=== PATIENT | female | born 1950 | race Two or more races ===

== ENCOUNTER 2021-02-10 13:55 | Outpatient (CLI) | payer OTHER | END 2021-02-10 13:56 | disposition home or self-care (01) | LOC: LAB 13:55 | PROVIDERS: ATTEND Psychiatry & Neurology Psychiatry | DX: K80.80 Other cholelithiasis without obstruction (principal); I44.30 Unspecified atrioventricular block; I45.81 Long QT syndrome; F33.2 Major depressive disorder, recurrent severe without psychotic features; F13.180 Sedative, hypnotic or anxiolytic abuse with sedative, hypnotic or anxiolytic-induced anxiety disorder; F29 Unspecified psychosis not due to a substance or known physiological condition; F43.9 Reaction to severe stress, unspecified; F40.248 Other situational type phobia; G47.59 Other parasomnia; R69 Illness, unspecified; M79.7 Fibromyalgia; C50.011 Malignant neoplasm of nipple and areola, right female breast; Z63.8 Other specified problems related to primary support group ==

== ENCOUNTER 2021-02-16 12:36 | Outpatient (CLI) | payer OTHER | END 2021-02-16 12:40 | disposition home or self-care (01) | LOC: RAD 12:36 | PROVIDERS: ATTEND Family Medicine | DX: K76.0 Fatty (change of) liver, not elsewhere classified (principal); K80.80 Other cholelithiasis without obstruction; R10.11 Right upper quadrant pain ==

== ENCOUNTER 2021-06-25 13:30 | Outpatient (CLI) | payer OTHER | END 2021-06-25 13:51 | disposition home or self-care (01) | LOC: EDBD 13:30 → TOM 13:30 | PROVIDERS: ATTEND Psychiatry & Neurology Neurology | DX: R51.9 Headache, unspecified (principal); G31.84 Mild cognitive impairment of uncertain or unknown etiology ==

== ENCOUNTER 2021-06-25 15:17 | Outpatient (CLI) | payer OTHER | END 2021-06-25 15:50 | disposition home or self-care (01) | LOC: LAB 15:17 | PROVIDERS: ATTEND Psychiatry & Neurology Psychiatry | DX: F33.2 Major depressive disorder, recurrent severe without psychotic features (principal); F13.180 Sedative, hypnotic or anxiolytic abuse with sedative, hypnotic or anxiolytic-induced anxiety disorder; F29 Unspecified psychosis not due to a substance or known physiological condition; F43.9 Reaction to severe stress, unspecified; F40.248 Other situational type phobia; G47.59 Other parasomnia; R69 Illness, unspecified; M79.7 Fibromyalgia; G47.33 Obstructive sleep apnea (adult) (pediatric); Z63.8 Other specified problems related to primary support group; I44.30 Unspecified atrioventricular block; I45.81 Long QT syndrome; C50.919 Malignant neoplasm of unspecified site of unspecified female breast ==

== ENCOUNTER 2024-08-17 17:44 | Emergency (ER) | payer OTHER ==
[~2024-08-17] VITALS: Ht 160 cm; Wt 74.4 kg
[2024-08-17] MEDS ORDERED: NEURONTIN300 MG PO (18:10)
[2024-08-17] MEDS ORDERED: SEROQUEL25 MG PO (18:10)
[2024-08-17] MEDS ORDERED: ECOTRIN81 MG PO (18:11)
== END 2024-08-17 21:47 | disposition home or self-care (01) ==
LOC: ER 17:44
DX: G89.11 Acute pain due to trauma (principal); S09.8XXA Other specified injuries of head, initial encounter; W06.XXXA Fall from bed, initial encounter; Y93.89 Activity, other specified; Y92.013 Bedroom of single-family (private) house as the place of occurrence of the external cause

== ENCOUNTER 2025-02-20 14:19 | Emergency (ER) | payer OTHER ==
[~2025-02-20] VITALS: Ht 160 cm; Wt 74.4 kg
[~2025-02-20 14:19] MED LIST: ECOTRIN81 MG PO; NEURONTIN300 MG PO; SEROQUEL25 MG PO
[2025-02-20 16:30] VITALS: BP 130/83; O2SAT 99
[2025-02-20] MEDS ORDERED: ARICEPT5 MG PO (16:38)
[2025-02-20] MEDS ORDERED: DULOXETINE HCL100 GM (16:40)
[2025-02-20] MEDS ORDERED: ALLER-TEC10 MG PO (16:41)
[2025-02-20] MEDS ORDERED: CLONAZEPAM1 M1 (16:41)
[2025-02-20] MEDS ORDERED: SODIUM CHLORIDE 0.45 % 1,000 ML IV STA (17:00)
[2025-02-20] MEDS ORDERED: TRAMADOL HCL 50 MG TABLET PO STA (17:00)
[2025-02-20 17:48] LABS: BASO % 1.4 % (0.1-1.2); EOS # 0.44 (0.04-0.54); EOS % 5.4 % (0.7-7.0); LYMPH # 2.13 (1.18-3.74); LYMPH % 26.3 % (19.3-53.1); MEAN PLATELET VOLUME 10.20 fl (9.4-12.4); MONO # 0.82 (0.24-0.82); MONO % 10.1 % (4.7-12.5); NEUT # 4.56 (1.56-6.13); NEUT % 56.2 % (34.0-71.1); RED CELL DISTRIBUTION WIDTH 14.0 % (11.6-14.4)
[2025-02-20 18:35] LABS: ALT/SGPT 63.0 U/L (12-78); AST/SGOT 30.0 U/L (15-37); BILIRUBIN TOTAL 0.36 mg/dL (0.3-1.2); BUN CREA RATIO 27.0 (7.0-25.0); CREATININE SERUM 0.73 mg/dL (0.55-1.02); GFR 77.93; GLOBULINA 3.3 G/DL (2.4-3.5); GLUCOSE FASTING 88.0 mg/dL (65-100); OSMOLALITY SERUM 289.0 MOSM/KG (275-295)
== END 2025-02-20 21:03 | disposition home or self-care (01) ==
LOC: ER 14:19
PROVIDERS: General Practice
DX: S09.8XXA Other specified injuries of head, initial encounter (principal); R51.9 Headache, unspecified; W06.XXXA Fall from bed, initial encounter; Y93.89 Activity, other specified; Y92.013 Bedroom of single-family (private) house as the place of occurrence of the external cause